=== PATIENT | female | born 1935 | race Caucasian/White ===

== ENCOUNTER 2018-02-23 10:08 | Emergency (ER) | payer MEDICARE, BC ==
[~2018-02-23] VITALS: Ht 167.6 cm; Wt 68.0 kg
== END 2018-02-23 11:50 | disposition home or self-care (01) ==
LOC: ED 10:08
DX: S82.64XA Nondisplaced fracture of lateral malleolus of right fibula, initial encounter for closed fracture (principal); X50.1XXA Overexertion from prolonged static or awkward postures, initial encounter
CPT/HCPCS: 73610; 93971; 99284